=== PATIENT | female | born 1960 | race Caucasian/White ===

== ENCOUNTER 2017-09-16 08:55 | Outpatient (CLI) | payer OTHER ==
[2017-09-16 18:00] LABS: BASOPHILS % (AUTO) 0.9 %; EOSINOPHILS # (AUTO) 0.2 10^3/uL (0.0-0.7); EOSINOPHILS % (AUTO) 3.5 %; HCT - HEMATOCRIT 41.6 % (37.0-47.0); HGB - HEMOGLOBIN 13.8 g/dL (12.0-16.0); LYMPHOCYTES # (AUTO) 1.3 10^3/uL (1.5-3.5); LYMPHOCYTES % (AUTO) 29.4 %; MEAN CORPUSCULAR HEMOGLOBIN 28.1 pg (27.0-31.0); MEAN CORPUSCULAR HGB CONC 33.1 g/dL (32.0-36.0); MEAN PLATELET VOLUME 8.2 fL (7.9-10.8); MONOCYTES # (AUTO) 0.5 10^3/uL (0.0-1.0); NEUTROPHILS # (AUTO) 2.6 10^3/uL (1.5-6.6); NEUTROPHILS % (AUTO) 56.2 %; RED CELL DISTRIBUTION WIDTH 13.3 % (12.0-15.0); UNCORRECTED WHITE BLOOD COUNT 4.6 x10^3/uL; WHITE BLOOD COUNT 4.6 x10^3/uL (4.8-10.8)
[2017-09-16 18:32] LABS: ALBUMIN/GLOBULIN RATIO 1.4 (1.0-2.2); BUN - BLOOD UREA NITROGEN 20 mg/dL (6-20); CALCIUM 9.1 mg/dL (8.5-10.3); CARBON DIOXIDE - CO2 29 mmol/L (21-32); CHLORIDE 104 mmol/L (101-111); CHOL/HDL RATIO 2.4 (<4.4); CHOLESTEROL 169 mg/dL; CREATININE 0.8 mg/dL (0.4-1.0); GFR - MDRD 74 (>89); GLUCOSE 95 mg/dL (70-100); HDL CHOLESTEROL 70 mg/dL; IRON 82 ug/dL (28-170); POTASSIUM 3.9 mmol/L (3.5-5.0); SODIUM 138 mmol/L (135-145); TOTAL IRON BINDING CAPACITY 343 ug/dL (250-450); TOTAL PROTEIN 7.2 g/dL (6.7-8.2); TRANSFERRIN 245 mg/dL (192-382); TRIGLYCERIDES 36 mg/dL
[2017-09-16 18:56] LABS: HEMOGLOBIN A1C 0.52 g/dL
[2017-09-16 19:07] LABS: LDL CHOLESTEROL,DIRECT 84 mg/dL
[2017-09-22 09:45] LABS: TEST RESULT REPORT
== END 2017-09-16 08:56 | disposition home or self-care (01) ==
LOC: LAB.F 08:55
PROVIDERS: ATTEND Naturopath
DX: Z13.220 Encounter for screening for lipoid disorders (principal); Z13.29 Encounter for screening for other suspected endocrine disorder; Z13.21 Encounter for screening for nutritional disorder; G47.00 Insomnia, unspecified; I95.89 Other hypotension; E03.9 Hypothyroidism, unspecified
CPT/HCPCS: 36415; 80053; 80061; 81291; 81599; 82306; 83036; 83540; 84443; 84466; 85025

== ENCOUNTER 2017-10-23 15:23 | Outpatient (CLI) | payer OTHER | END 2017-10-23 15:24 | disposition home or self-care (01) | LOC: LAB.F 15:23 | PROVIDERS: ATTEND Naturopath | DX: M27.2 Inflammatory conditions of jaws (principal); B00.9 Herpesviral infection, unspecified; M89.49 Other hypertrophic osteoarthropathy, multiple sites | CPT/HCPCS: 36415; 83615; 85651 ==

== ENCOUNTER 2018-01-06 08:54 | Outpatient (CLI) | payer OTHER | END 2018-01-06 08:55 | disposition home or self-care (01) | LOC: LAB.F 08:54 | PROVIDERS: ATTEND Naturopath | DX: Z13.21 Encounter for screening for nutritional disorder (principal) | CPT/HCPCS: 36415; 82306 ==

== ENCOUNTER 2018-11-26 11:19 | Emergency (ER) | payer OTHER ==
[2018-11-26 12:05] LABS: BASOPHILS # (AUTO) 0.1 10^3/uL (0.0-0.1); BASOPHILS % (AUTO) 1.1 %; EOSINOPHILS # (AUTO) 0.1 10^3/uL (0.0-0.7); EOSINOPHILS % (AUTO) 1.9 %; HGB - HEMOGLOBIN 13.7 g/dL (12.0-16.0); LYMPHOCYTES # (AUTO) 1.7 10^3/uL (1.5-3.5); LYMPHOCYTES % (AUTO) 34.4 %; MEAN CORPUSCULAR HEMOGLOBIN 28.6 pg (27.0-31.0); MEAN CORPUSCULAR HGB CONC 34.1 g/dL (32.0-36.0); MEAN PLATELET VOLUME 7.3 fL (7.9-10.8); MONOCYTES # (AUTO) 0.5 10^3/uL (0.0-1.0); MONOCYTES % (AUTO) 10.2 %; NEUTROPHILS # (AUTO) 2.6 10^3/uL (1.5-6.6); NEUTROPHILS % (AUTO) 52.4 %; PLT - PLATELET COUNT 216 10^3/uL (130-450); RED BLOOD COUNT 4.79 10^6/uL (4.20-5.40); RED CELL DISTRIBUTION WIDTH 13.2 % (12.0-15.0); WHITE BLOOD COUNT 4.9 x10^3/uL (4.8-10.8)
[2018-11-26 12:15] LABS: ALBUMIN 4.2 g/dL (3.2-5.5); ALBUMIN/GLOBULIN RATIO 1.5 (1.0-2.2); CALCIUM 9.2 mg/dL (8.5-10.3); CREATININE 0.7 mg/dL (0.4-1.0)
--- NOTE | 2018-11-26 12:39 | XRAY Report ---
Reason: chest pain Procedure Date: 11/26/2018 Accession Number: [id number] / [id number] Procedure: XR - Chest 2 View X-Ray CPT Code: 34180 FULL RESULT: EXAM: CHEST RADIOGRAPHY EXAM DATE: 11/26/2018 12:17 PM. CLINICAL HISTORY: Chest pain. COMPARISON: None. TECHNIQUE: 2 views. FINDINGS: Lungs/Pleura: No focal opacities evident. No pleural effusion. No pneumothorax. Normal volumes. Mediastinum: Heart and mediastinal contours are unremarkable. Other: None. IMPRESSION: No focal consolidation. RADIA
[2018-11-26 14:02] VITALS: BP 109/64
--- NOTE | 2018-11-26 14:20 | ED Physician Documentation ---
PD HPI CHEST PAIN - Stated complaint Stated Complaint: CHEST PX - Chief complaint Chief Complaint: Cardiac - History obtained from History obtained from: Patient - History of Present Illness Timing - onset: Last night Timing - onset during: Rest Timing - duration: Hours (16) Timing - details: Gradual onset, Constant Pain level max: 4 Pain level now: 4 Quality: Aching, Dull, Pain Location: Substernal Radiation: Other (non-radiating) Improved by: Nothing. No: Rest Worsened by: No: Exertion, Inspiration, Eating, Movement, Palpation, Position Associated symptoms: No: Shortness of air, Diaphoresis, Nausea, Vomiting, Feeling faint / dizzy, General Weakness, Palpitations, Cough Similar symptoms before: Has not had sx before Recently seen: Not recently seen Review of Systems Constitutional: denies: Fever, Chills Nose: denies: Rhinorrhea / runny nose, Congestion Throat: denies: Sore throat Cardiac: denies: Palpitations, Calf pain Respiratory: denies: Dyspnea, Cough, Hemoptysis, Wheezing GI: denies: Abdominal Pain, Vomiting, Diarrhea, Hematemesis, Bloody / black stool Skin: denies: Rash Musculoskeletal: denies: Neck pain, Back pain Neurologic: denies: Headache PD PAST MEDICAL HISTORY - Past Medical History Past Medical History: Yes - Past Surgical History Past Surgical History: Yes - Present Medications Home Medications: Ambulatory Orders Medication Instructions Recorded Confirmed Allzyme 11/26/18 Flaxseed Oil 11/26/18 Mucuna 11/26/18 Multivitamin [Multiple Vitamins] 11/26/18 [place]-3/Dha/Epa/Fish Oil [Fish Oil 11/26/18 1,000 mg Softgel] Zinc Gluconate [Zinc] 11/26/18 - Allergies Allergies/Adverse Reactions: Allergies Allergy/AdvReac Type Severity Reaction Status Date / Time No Known Drug Allergies Allergy Verified 11/26/18 11:31 - Social History Does the pt smoke?: No Smoking Status: Never smoker Does the pt drink ETOH?: No Does the pt have substance abuse?: No - Immunizations Immunizations are current?: No Immunizations: No immun PD ED PE NORMAL - Vitals Vital signs reviewed: Yes - General General: Alert and oriented X 3, No acute distress - HEENT HEENT: Moist mucous membranes - Neck Neck: Supple, no meningeal sign - Cardiac Cardiac: RRR, No murmur, Strong equal pulses - Respiratory Respiratory: No respiratory distress, Clear bilaterally - Abdomen Abdomen: Soft, Non tender, Non distended - Back Back: No spinal TTP - Derm Derm: Warm and dry - Extremities Extremities: No edema, No calf tenderness / cord - Neuro Neuro: Alert and oriented X 3 - Psych Psych: Normal mood, Normal affect Results - Vitals Vitals: Vital Signs - 24 hr 11/26/18 11/26/18 11:24 14:02 Temperature 36.9 C Heart Rate 63 75 Respiratory 16 18 Rate Blood Pressure 96/76 109/64 O2 Saturation 100 100 Oxygen O2 Source Room air - EKG (time done) 1124 Rate: Rate (enter#) (62) Rhythm: NSR [place]: Normal Intervals: Normal OR QRS: Normal Ischemia: Normal ST segments - Labs Labs: Laboratory Tests 11/26/18 11/26/18 11/26/18 11:58 11:58 11:58 WBC 4.9 RBC 4.79 Hgb 13.7 Hct 40.2 MCV 84.0 MCH 28.6 MCHC 34.1 RDW 13.2 Plt Count 216 MPV 7.3 L Neut # (Auto) 2.6 Lymph # (Auto) 1.7 [place] # (Auto) 0.5 Eos # (Auto) 0.1 Baso # (Auto) 0.1 Absolute Nucleated RBC 0.00 Nucleated RBC % 0.0 Sodium 138 Potassium 4.1 Chloride 102 Carbon Dioxide 29 Anion Gap 7.0 BUN 19 Creatinine 0.7 Estimated GFR (MDRD) 87 L Glucose 112 H Calcium 9.2 Total Bilirubin 1.0 AST 27 ALT 25 Alkaline Phosphatase 71 Troponin I < 0.04 Total Protein 7.0 Albumin 4.2 Globulin 2.8 Albumin/Globulin Ratio 1.5 Lipase 45 - Rads (name of study) cxr Radiology: Prelim report reviewed, EMP read contemporaneously, See rad report (normal) PD MEDICAL DECISION MAKING - ED course Complexity details: reviewed results, re-evaluated patient, considered differential (No ST elevation [place], no aortic dissection, no PE, no tension pneumothorax, no aortic aneurysm), d/w patient, d/w family ED course: 57-year-old female who presents to the emergency department with atypical chest pain. Negative EKG and troponin after approximately 16 hours of constant symptoms. Unclear etiology. No evidence of gallbladder dysfunction or disease. Patient is well-appearing, nontoxic. Afebrile. We will have her follow-up with her doctor closely for cardiac stress test. Patient counseled regarding signs and symptoms for which I believe and urgent re-evaluation would be necessary. Patient with good understanding of and agreement to plan and is comfortable going home at this time This document was made in part using voice recognition software. While efforts are made to proofread this document, sound alike and grammatical errors may [place]ou [place] Departure - Departure Disposition: 01 Home, Self Care Clinical Impression: Chest pain Qualifiers: Chest pain type: unspecified Qualified Code(s): R07.9 - Chest pain, unspecified Condition: Good Instructions: ED Chest Pain Atypical Unkn Cause Follow-Up: your,doctor in 1 week [Other] Comments: The cause of your symptoms is unclear today. You should follow-up with your doctor within 1 week for a cardiac stress test. Return if you worsen. Your testing is normal today
== END 2018-11-26 14:27 | disposition home or self-care (01) ==
LOC: ED 11:19
DX: R07.9 Chest pain, unspecified (principal)
CPT/HCPCS: 36415; 71046; 80053; 83690; 84484; 85025; 93005; 99283; 99284

== ENCOUNTER 2019-07-29 15:59 | Outpatient (CLI) | payer OTHER | END 2019-07-29 16:00 | disposition home or self-care (01) | LOC: LAB 15:59 | PROVIDERS: ATTEND Naprapath | DX: R05 Cough (principal); R50.9 Fever, unspecified; R79.89 Other specified abnormal findings of blood chemistry | CPT/HCPCS: 81599; 86334 ==

== ENCOUNTER 2020-05-10 08:00 | Outpatient (CLI) | payer OTHER ==
--- NOTE | 2020-05-10 18:13 | XRAY Report ---
PROCEDURE: Lumbar Spine Complete INDICATIONS: BACK PAIN, LUMBAR TECHNIQUE: 5 views of the lumbar spine were acquired. COMPARISON: None. FINDINGS: Bones: 5 nonrib-bearing vertebrae are present. There is normal bony alignment. Acute moderate T12 c ompression with approximately 35% anterior vertebral body height loss. No other acute compressions. N o suspicious bony lesions. Lower lumbar facet arthropathy. Soft tissues: Overlying bowel gas pattern is normal. No suspicious soft tissue calcifications. Oblique images: No pars defects. IMPRESSION: Acute moderate T12 compression fracture. Reviewed by: Baltazar Ortega MD on 05/10/2020 6:11 PM PDT Approved by: Baltazar Ortega MD on 05/10/2020 6:11 PM PDT Station ID: [id number]
--- NOTE | 2020-05-10 18:14 | XRAY Report ---
PROCEDURE: Thoracic Spine 3 View INDICATIONS: Thoracic spine pain TECHNIQUE: 3 views of the thoracic spine were acquired. COMPARISON: None. FINDINGS: Bones: Acute moderate T12 compression fracture. No other fractures or dislocations. No suspicious bon y lesions. 12 pairs of ribs are noted, and appear intact where visualized. Soft tissues: No paravertebral stripe thickening. IMPRESSION: Acute moderate T12 compression fracture. Reviewed by: Baltazar Ortega MD on 05/10/2020 6:12 PM PDT Approved by: Baltazar Ortega MD on 05/10/2020 6:12 PM PDT Station ID: [id number]
== END 2020-05-10 23:59 | disposition home or self-care (01) ==
LOC: DI.S 08:00
PROVIDERS: ATTEND Physician Assistant Medical
DX: M48.54XA Collapsed vertebra, not elsewhere classified, thoracic region, initial encounter for fracture (principal)
CPT/HCPCS: 72072; 72110

== ENCOUNTER 2020-05-10 18:40 | Outpatient (CLI) | payer OTHER | END 2020-05-10 18:41 | disposition short-term general hospital (02) | LOC: EMS 18:40 | PROVIDERS: ATTEND Surgery | DX: M54.9 Dorsalgia, unspecified (principal); V80.010A Animal-rider injured by fall from or being thrown from horse in noncollision accident, initial encounter; Y93.52 Activity, horseback riding | CPT/HCPCS: A0425; A0429 ==

== ENCOUNTER 2020-11-07 10:53 | Outpatient (CLI) | payer OTHER ==
--- NOTE | 2020-11-07 11:46 | DEXA Report ---
PROCEDURE: Dexa Spine and/or Hip INDICATIONS: PERSONAL HISTORY OF TRAUMATIC FRACTURE TECHNIQUE: Dual energy x-ray absorptiometry (DXA) was performed on a [employer] System. Regions measur ed are the AP Spine, femoral neck, and if needed forearm. COMPARISON: None. FINDINGS: Lumbar Spine: Bone Mineral Density 1.017 g/cm/cm,T score -1.4, Left Femoral Neck: Bone Mineral Density 0.902 g/cm/cm, T score -0.8, (T score greater or equal to -1.0: NORMAL) (T score from -1.1 to -2.4: OSTEOPENIA) (T score less than or equal to -2.5 to: OSTEOPOROSIS) Impression: Osteopenia. Patients with diagnosis of osteoporosis or osteopenia should have regular bone mineral density assess ment. For those eligible for Medicare, routine testing is allowed once every 2 years. Testing frequ ency can be increased for patients who have rapidly progressing disease or for those who are receivin g medical therapy to restore bone mass. Reviewed by: Jimmy Wilson MD on 11/07/2020 11:44 AM PST Approved by: Jimmy Wilson MD on 11/07/2020 11:44 AM PST Station ID: [id number]
== END 2020-11-07 10:54 | disposition home or self-care (01) ==
LOC: DI 10:53
PROVIDERS: ATTEND Nurse Practitioner Family
DX: M85.89 Other specified disorders of bone density and structure, multiple sites (principal); N95.1 Menopausal and female climacteric states; Z87.81 Personal history of (healed) traumatic fracture

== ENCOUNTER 2024-01-07 12:42 | Outpatient (CLI) | payer OTHER ==
[2024-01-07 14:38] LABS: BASOPHILS # (AUTO) 0.1 10^3/uL (0.0-0.1); BASOPHILS % (AUTO) 1.1 %; EOSINOPHILS # (AUTO) 0.2 10^3/uL (0.0-0.7); EOSINOPHILS % (AUTO) 3.6 %; HCT - HEMATOCRIT 41.5 % (37.0-47.0); HGB - HEMOGLOBIN 13.6 g/dL (12.0-16.0); LYMPHOCYTES # (AUTO) 1.9 10^3/uL (1.5-3.5); MEAN CORPUSCULAR HEMOGLOBIN 28.6 pg (27.0-31.0); MEAN CORPUSCULAR HGB CONC 32.8 g/dL (32.0-36.0); MEAN CORPUSCULAR VOLUME 87.4 fL (81.0-99.0); MEAN PLATELET VOLUME 9.7 fL (7.9-10.8); MONOCYTES # (AUTO) 0.7 10^3/uL (0.0-1.0); NEUTROPHILS # (AUTO) 2.7 10^3/uL (1.5-6.6); NEUTROPHILS % (AUTO) 48.1 %; PLT - PLATELET COUNT 253 10^3/uL (130-450); RED BLOOD COUNT 4.75 10^6/uL (4.20-5.40); RED CELL DISTRIBUTION WIDTH 12.7 % (12.0-15.0); WHITE BLOOD COUNT 5.6 x10^3/uL (4.8-10.8)
[2024-01-07 15:46] LABS: ALBUMIN 4.2 g/dL (3.2-5.5); ALBUMIN/GLOBULIN RATIO 1.7 (1.0-2.2); BILIRUBIN,TOTAL 0.7 mg/dL (0.2-1.0); CALCIUM 9.5 mg/dL (8.5-10.3); CREATININE 0.8 mg/dL (0.6-1.3); POTASSIUM 4.6 mmol/L (3.5-4.5); TOTAL PROTEIN 6.7 g/dL (6.4-8.9)
== END 2024-01-07 12:43 | disposition home or self-care (01) ==
LOC: LAB.S 12:42
PROVIDERS: ATTEND Surgery
DX: K64.4 Residual hemorrhoidal skin tags (principal)
CPT/HCPCS: 36415; 80053; 85025

== ENCOUNTER 2024-03-23 08:00 | Outpatient (CLI) | payer OTHER | END 2024-03-23 23:59 | disposition home or self-care (01) | LOC: LAB.R 08:00 | PROVIDERS: ATTEND Surgery | DX: R19.7 Diarrhea, unspecified (principal) | CPT/HCPCS: 81599; 87507 ==